=== PATIENT | female | born 1985 | race Caucasian/White ===

== ENCOUNTER 2024-07-14 10:27 | Outpatient (CLI) | payer BC, SELFPAY ==
--- OUTSIDE RECORDS SUMMARY | 2024-07-14 10:43 | XMS_ITS | Referral Summary ---
Author Organization [facility] Address [address] [place] [address]. [place] [address] Care Team Providers Care Molded Rubber Goods Cutter Name Role Phone Isadora De La Cruz MD Primary Care Provider +1- [phone] Encounters Date Type Department Care Team Description 06/29/2024 Travel 06/29/2024 10:05 AM CDT - 06/29/2024 11:59 PM CDT Hospital Encounter [facility] [address], [address] [place] [address] Isadora De La Cruz MD Visit for screening mammogram Discharge Disposition: Home or Self Care 06/24/2024 Travel from Last 3 Months Allergies Active Allergy Reactions Criticality Noted Date Comments Amoxicillin Rash Low 03/24/2017 Medications Medication Sig Dispensed Refills Start Date End Date Status VITAMINS PO Take by mouth. Active Active Problems Problem Noted Date Diagnosed Date Indication for care in labor and delivery, antep artum 05/02/2017 Indication for care in labor or delivery 017 Other procreative management counseling and advi ce 01/28/2013 Social History Tobacco Use Types Packs/Day Years Used Date Smoking Tobacco: Never Smokeless Tobacco: Never Alcohol Use Standard Drinks/Week Comments No 1.7 (1 standard drink = 0.6 oz p ure alcohol) Adolescent Education Answer Date Record ed Getting School Help Needed Not on file 07/04 Sex and Gender Information Value Date Recorded Sex Assigned at Not on file Gender Identity Not on file Sexual Orientation Not on file Last Filed Vital Signs Vital Sign Reading Time Taken Comments Blood Pressure 126/70 05/04/2017 4:00 PM CDT Pulse 59 05/04/2017 4:00 PM CDT Temperature 37.2 ??C (98.9 ??F) 05/04/2017 4:00 PM CD T Respiratory Rate 18 05/04/2017 4:00 PM CDT Oxygen Saturation - - Inhaled Oxygen Concentration - - Weight 73 kg (161 lb) 05/02/2017 11:07 AM CDT Height 162.6 cm (5' 4) 05/02/2017 11:07 AM CDT Body Mass Index 27.64 05/02/2017 11:07 AM CDT Plan of Treatment Not on file Procedures Procedure Name Priority Date/Time Associated Diagnosis Comments MA SCREENING BILATERAL W/ HARMEET Routine 06/29/2024 10:35 AM CDT Visit for screening mammogram GLUCOSE Routine 06/27/2023 9:59 AM CDT Personal history of gestational diabetes LIPID PROFILE Routine 06/27/2023 9:59 AM CDT Encounter for screening for lipoid disorders HIV ANTIGEN ANTIBODY COMBO Routine 09/16/2016 from Last 3 Months or Most Recently Relevant to Health Maintenance Results * MA Screening Bilateral w/ Harmeet (06/29/2024 10:35 AM CDT) Anatomical Region Laterality Modality Breast Bilateral Mammography Impressions 06/30/2024 8:03 AM CDT IMPRESSION: ACR BI-RADS Category 1: Negative BREAST CANCER SCREENING RECOMMENDATION: Routine yearly mammography beginning at age 40 or as discussed with your provider. The results and recommendations of this examination will be communicated to the patient. David Marcial MD Narrative 06/30/2024 8:03 AM CDT BILATERAL FULL FIELD DIGITAL SCREENING MAMMOGRAM WITH TOMOSYNTHESIS Performed on: 06/29/24 Compared to: 07/01/2022 Technique: ??This study was evaluated with the assistance of Computer-Aided Detection. ??Breast Tomosynthesis was used in interpretation. Findings: The breasts are heterogeneously dense, which may obscure small masses. ??There is no radiographic evidence of malignancy. Isadora De La Cruz MD IMG MAMMOGRAPHY OR DERABLES * (ABNORMAL) Lipid Profile (06/27/2023 9:59 AM CDT) Cholesterol 188 <200 mg/dL 06/27/2023 8:03 PM CDT [facility] Triglycerides 100 <150 mg/dL 06/27/2023 8:03 PM CDT [facility] Direct Measure HDL 67 >=50 mg/dL 06/27/2023 8:03 PM CDT [facility] LDL Cholesterol Calculated 101(H) <=100 mg/dL 06/27/2023 8:03 PM CDT [facility] Non HDL Cholesterol 121 <130 mg/dL 06/27/2023 8:03 PM CDT [facility] Blood BLOOD SPECIMEN / Unknown Client Draw / Unknown 06/27/2023 9:59 AM CDT 06/27/2023 3:58 PM CDT Narrative [facility] - 06/27/2023 8:03 PM CDT Cholesterol Desirable: ??<200 mg/dL Triglycerides Normal: ??Less than 150 mg/dL Borderline High: ??150-199 mg/dL High: ??200-499 mg/dL Very High: ??Greater than or equal to 500 mg/dL Direct Measure HDL Female: ??Greater than or equal to 50 mg/dL Male: ??Greater than or equal to 40 mg/dL LDL Cholesterol Desirable: ??<100mg/dL Above Desirable: ??100-129 mg/dL Borderline High: ??130-159 mg/dL High: ??160-189 mg/dL Very High: ??>= 190 mg/dL Non HDL Cholesterol Desirable: ??130 mg/dL Above Desirable: ??130-159 mg/dL Borderline High: ??160-189 mg/dL High: ??190-219 mg/dL Very High: ??Greater than or equal to 220 mg/dL Chio Maloney LEAD TINNER SHAREPOINT CONSULTANT LAB - BLO OD ORDERABLES [facility] Core Lab [address] [facility] [address], [address] [place] [address], [facility] [phone] * (ABNORMAL) Glucose (06/27/2023 9:59 AM CDT) Glucose 103(H) 70 - 99 mg/dL 06/27/2023 8:03 PM CDT [facility] Patient Fasting > 8hrs? Yes 06/27/2023 8:03 PM CDT [facility] Blood BLOOD SPECIMEN / Unknown Client Draw / Unknown 06/27/2023 9:59 AM CDT 06/27/2023 3:58 PM CDT Chio Maloney LEAD TINNER SHAREPOINT CONSULTANT LAB - BLO OD ORDERABLES [facility] Core Lab [address] [facility] [address] [facility], [address] [place] [address], [facility] [phone] * HIV Antigen Antibody Combo (09/16/2016) HIV Antigen Antibody Combo negative Blood specimen (specimen) Patient Reported LAB - BLOOD ORDERABL ES from Last 3 Months or Most Recently Relevant to Health Maintenance Care Teams Molded Rubber Goods Cutter Relationship Specialty Start Date End Date Isadora De La Cruz MD [facility] [address] [place] [address] PCP - General 06/24/24
--- OUTSIDE RECORDS SUMMARY | 2024-07-14 10:43 | XMS_ITS | Encounter Summary ---
Author Organization [facility] Address [address] [place] [address]. [place] [address] Care Team Providers Care Silk Screen Operator Name Role Phone Isadora De La Cruz MD Primary Care Provider +1- [phone] Encounter Details Date Type Department Care Team (Latest Contact Info) Description 06/24/2024 Travel Social History Tobacco Use Types Packs/Day Years [...] on file Sexual Orientation Not on file documented as of this encounter Plan of Treatment Not on file documented as of this encounter Visit Diagnoses Not on filedocumented in this encounter Care Teams Silk Screen Operator Relationship Specialty Start Date End Date Isadora De La Cruz MD [facility] [address] [place] [address] PCP - General 06/24/24 documented as of this encounter
--- OUTSIDE RECORDS SUMMARY | 2024-07-14 10:43 | XMS_ITS | Encounter Summary ---
Author Organization [facility] Address [address] [place] [address]. [place] [address] Care Team Providers Care Associate Professor Of Law Name Role Phone Isadora De La Cruz MD Primary Care Provider +1- [phone] Encounter Details Date Type Department Care Team (Latest Contact Info) Description 06/29/2024 Travel Social History Tobacco Use Types Packs/Day [...] on filedocumented in this encounter Care Teams Associate Professor Of Law Relationship Specialty Start Date End Date Isadora De La Cruz MD [facility] [address] [place] [address] PCP - General 06/24/24 documented as of this encounter
--- OUTSIDE RECORDS SUMMARY | 2024-07-14 10:43 | XMS_ITS | Clinical Summary ---
Author Organization [facility] Address [address] [place] [address]. [place] [address] Care Team Providers Care Jewelry Casting Model Maker Apprentice Name Role Phone Isadora De La Cruz MD Primary Care Provider +1- [phone] Allergies Active Allergy Reactions Criticality Noted Date Comments Amoxicillin Rash Low 03/24/2017 Medications Medication Sig Dispensed Refills Start Date End Date Status VITAMINS PO Take by mouth. Active Active Problems Problem Noted Date Diagnosed Date Indication for care in labor and delivery, antep artum 05/02/2017 Indication for care in labor or delivery 017 Other procreative management counseling and advi ce 01/28/2013 Encounters Date Type Department Care Team Description 06/29/2024 10:05 AM CDT - 06/29/2024 11:59 PM CDT Hospital Encounter [facility] [address], [address] [place] [address] Isadora De La Cruz MD Visit for screening mammogram Discharge Disposition: Home or Self Care 06/29/2024 Travel 06/24/2024 Travel from Last 3 Months Family History Medical History Relation Comments Breast Cancer Maternal Grandmother Colon Cancer Mother at 70YO Ovarian Cancer No family hx of Relation Status Comments Maternal Grandmother Mother Social History Tobacco Use Types Packs/Day Years [...] 05/02/2017 11:07 AM CDT Plan of Treatment Health Maintenance Due Date Last Done Comments ADVANCE CARE PLANNING 1983 ANNUAL REVIEW OF HM ORDERS 1983 HEPATITIS C SCREENING 2001 HEPATITIS B IMMUNIZATION (1 of 3 - 19+ 3-dose series) 2002 YEARLY PREVENTIVE VISIT 06/25/2023 06/25/20, 06/25/2022, 01/09/2021, Additional history exists PHQ-2 (once per calendar year) 2023 PAP 01/10/2024 01/09/2021, 01/09/2021 COVID-19 Vaccine ( season) 2024 07/05/2023, 06/24/2022, 09/07/2021, Additional history exists INFLUENZA VACCINE (#1) 2024 , 07/16/2022, 07/16/2022, Additional history exists GLUCOSE 06/27/2026 06/27/2023, 06/13, 05/03/2017, Additional history exists MAMMO SCREENING 06/29/2026 06/29/2024, 07/01/2022 DTAP/TDAP/TD IMMUNIZATION (2 - Td or Tdap) 03/20/2027 03/20/2017 LIPID 06/27/2028 06/27/2023, 06/25/2022 RSV VACCINE (1 - 1-dose 75+ series) 2058 HIV SCREENING Completed 09/16/2016 HPV IMMUNIZATION Aged Out No longer e ligible based on patient's age to complete this topic MENINGITIS IMMUNIZATION Aged Out No l onger eligible based on patient's age to complete this topic Pneumococcal Vaccine: Pediatrics (0 to 5 Years) and At-Risk Patients (6 to 64 Years) Aged Out No longer eligible based on patient's age to complete this topic RSV MONOCLONAL ANTIBODY Aged Out No l onger eligible based on patient's age to complete this topic Procedures Procedure Name Priority Date/Time Associated Diagnosis [...] or equal to 220 mg/dL Chio Maloney STRINGED INSTRUMENT TUNER ANIMAL DAYCARE PROVIDER LAB - BLO OD ORDERABLES [facility] [place] Core Lab [address] [facility], [address] [place] [address], [facility] [phone] * (ABNORMAL) Glucose (06/27/2023 9:59 AM CDT) Glucose 103(H) 70 - 99 mg/dL 06/27/2023 8:03 PM CDT [facility] Patient Fasting > 8hrs? Yes 06/27/2023 8:03 PM CDT [facility] Blood BLOOD SPECIMEN / Unknown Client Draw / Unknown 06/27/2023 9:59 AM CDT 06/27/2023 3:58 PM CDT Chio Maloney APRN ANIMAL DAYCARE PROVIDER LAB - BLO OD ORDERABLES [facility] [place] [facility] [address] [facility] [place] [address], [facility] [phone] * HIV Antigen Antibody Combo (09/16/2016) HIV Antigen Antibody Combo negative Blood specimen (specimen) Patient Reported LAB - BLOOD ORDERABL ES from Last 3 Months or Most Recently Relevant to Health Maintenance Care Teams Jewelry Casting Model Maker Apprentice Relationship Specialty Start Date End Date Isadora De La Cruz MD [facility] [address] [place] [address] PCP - General 06/24/24
--- OUTSIDE RECORDS SUMMARY | 2024-07-14 10:43 | XMS_ITS | Encounter Summary ---
Author Organization [facility] Address [address] [place] [address] Care Team Providers Care Box Finisher Name Role Phone Isadora De La Cruz MD Primary Care Provider +1- [phone] Reason for Referral * Diagnostic Imaging Mammo (Routine) - Pending Review Specialty Diagnoses / Procedures Referred By Maldonado oglesby Referred To Contact Radiology. Diagnoses Visit for screening mammogram Procedures MA Screening Bilateral w/ Harmeet MA Screen Bilateral w/Harmeet Isadora De La Cruz MD [facility] [address] [place] [address] Referral ID Status Reason Start Date Expiration Date V isits Requested Visits Authorized [id number] Pending Review 06/28/2024 06/28/2025 1 1 Reason for Visit * Diagnostic Imaging Mammo (Routine) - Pending Review Specialty Diagnoses / Procedures Referred By Maldonado oglesby Referred To Contact Radiology / Radiology. Diagnoses mammo Procedures MA SCREENING DIGITAL BILATERAL System, Provider Not In Breast Center [address] [facility], [address] [place] [address] Referral ID Status Reason Start Date Expiration Date V isits Requested Visits Authorized [id number] Pending Review 06/29/2024 06/29/2025 1 1 Encounter Details Date Type Department Care Team (Late st Contact Info) Description 06/29/2024 10:05 AM CDT - 06/29/2024 11:59 PM CDT Hospital Encounter [facility] [address] [facility], [address] [place] [address] Isadora De La Cruz MD [facility] [address] [place] [address] Visit for screening mammogram Discharge Disposition: Home or Self Care Social History Tobacco Use Types Packs/Day Years [...] on file documented as of this encounter Medications at Time of Discharge Medication Sig Dispensed Refills Start Date End Date VITAMINS PO Take by mouth. documented as of this encounter Plan of Treatment Not on file documented as of this encounter Procedures Procedure Name Priority Date/Time Associated Diagnosis Comments MA SCREENING BILATERAL W/ HARMEET Routine 06/29/2024 10:35 AM CDT Visit for screening mammogram documented in this encounter Results * MA Screening Bilateral w/ Harmeet [...] La Cruz MD IMG MAMMOGRAPHY OR DERABLES documented in this encounter Visit Diagnoses Diagnosis Visit for screening mammogram Other screening mammogram documented in this encounter Care Teams Box Finisher Relationship Specialty Start Date End Date Isadora De La Cruz MD [facility] [address] [place] [address] PCP - General 06/24/24 documented as of this encounter
== END 2024-07-14 10:28 | disposition home or self-care (01) ==
PROVIDERS: PCP Physician Assistant Medical; Visit Provider Emergency Medicine
DX: Z00.00 Encounter for general adult medical examination without abnormal findings (principal); Z13.6 Encounter for screening for cardiovascular disorders; Z86.32 Personal history of gestational diabetes
CPT/HCPCS: 80061; 82947

== ENCOUNTER 2024-07-15 09:27 | Outpatient (CLI) | payer BC, SELFPAY ==
--- OUTSIDE RECORDS SUMMARY | 2024-07-22 12:25 | XMS_ITS | Referral Summary ---
Author Organization [facility] Address [address] [place] [address]. [place] [address] Care Team Providers Care Child Day Care Center Worker Name Role Phone Isadora De La Cruz MD Primary Care Provider +1- [phone] Encounters Date Type Department Care Team Description 06/29/2024 Travel 06/29/2024 10:05 AM CDT - 06/29/2024 11:59 PM CDT Hospital Encounter [facility] [address] [facility] [facility], [address] [place] [address] Isadora De La Cruz MD [...] or equal to 220 mg/dL Chio Maloney ASSISTANT DIRECTOR COLLECTION ANALYST LAB - BLO OD ORDERABLES [facility] Core Lab [address] [facility] [address], [address] [place] [address], [facility] [phone] * (ABNORMAL) Glucose (06/27/2023 9:59 AM CDT) Glucose 103(H) 70 - 99 mg/dL 06/27/2023 8:03 PM CDT [facility] Patient Fasting > 8hrs? Yes 06/27/2023 8:03 PM CDT [facility] Blood BLOOD SPECIMEN / Unknown Client Draw / Unknown 06/27/2023 9:59 AM CDT 06/27/2023 3:58 PM CDT Chio Maloney ASSISTANT DIRECTOR COLLECTION ANALYST LAB - BLO OD ORDERABLES [facility] Core Lab [address] [facility] [address] [facility], [address] [place] [address], [facility] [phone] * HIV Antigen Antibody Combo (09/16/2016) HIV Antigen Antibody Combo negative Blood specimen (specimen) Patient Reported LAB - BLOOD ORDERABL ES from Last 3 Months or Most Recently Relevant to Health Maintenance Care Teams Child Day Care Center Worker Relationship Specialty Start Date End Date Isadora De La Cruz MD [facility] [address] [place] [address] PCP - General 06/24/24
--- OUTSIDE RECORDS SUMMARY | 2024-07-22 12:25 | XMS_ITS | Encounter Summary ---
Author Organization [facility] Address [address] [place] [address]. [place] [address] Care Team Providers Care Button Tacker Name Role Phone Isadora De La Cruz MD Primary Care Provider +1- [phone] Encounter Details Date Type Department Care Team [...] on filedocumented in this encounter Care Teams Button Tacker Relationship Specialty Start Date End Date Isadora De La Cruz MD [facility] [address] [place] [address] PCP - General 06/24/24 documented as of this encounter
--- OUTSIDE RECORDS SUMMARY | 2024-07-22 12:25 | XMS_ITS | Clinical Summary ---
Author Organization [facility] Address [address] [place] [address]. [place] [address] Care Team Providers Care Central Supply Technician Supervisor Name Role Phone Isadora De La Cruz MD Primary Care Provider +1- [phone] Allergies Active Allergy Reactions Criticality Noted Date [...] - 06/29/2024 11:59 PM CDT Hospital Encounter [facility] [address] [facility], [address] [place] [address] Isadora De La Cruz MD Visit for [...] or equal to 220 mg/dL Chio Maloney INTERNAL GRINDER TENDER PLATE CUTTER LAB - BLO OD ORDERABLES [facility] Core Lab [address] [facility], [address] [place] [address], [facility] [phone] * (ABNORMAL) Glucose (06/27/2023 9:59 AM CDT) Glucose 103(H) 70 - 99 mg/dL 06/27/2023 8:03 PM CDT [facility] Patient Fasting > 8hrs? Yes 06/27/2023 8:03 PM CDT [facility] Blood BLOOD SPECIMEN / Unknown Client Draw / Unknown 06/27/2023 9:59 AM CDT 06/27/2023 3:58 PM CDT Chio Maloney APRN PLATE CUTTER LAB - BLO OD ORDERABLES [facility] Core Lab [address] [facility], [address] [place] [address], [facility] [phone] * HIV Antigen Antibody Combo (09/16/2016) HIV Antigen Antibody Combo negative Blood specimen (specimen) Patient Reported LAB - BLOOD ORDERABL ES from Last 3 Months or Most Recently Relevant to Health Maintenance Care Teams Central Supply Technician Supervisor Relationship Specialty Start Date End Date [facility]adroa De La [facility] MD [facility] [address] [place] [address] PCP - General 06/24/24
--- OUTSIDE RECORDS SUMMARY | 2024-07-22 12:26 | XMS_ITS | Data Portability ---
Author Organization [employer] [employer], [id number] Address [address] [place] [address] Assessment Encounter Date Assessment Date Assessment LastModified by Organization Details LastModified Time 07/03/2023 07/03/2023 Total time spent in reviewing patient's history and outside records, discussion of patient's concerns, examination, reviewing and discussing imaging, ordering additional tests, counseling with shared decision making, sending prescriptions and documentation was 21 minutes. [email or web address] Not available 07/03/2023 14:22:14 Plan of Treatment Reminders Order Date Submit Date Provider Last Modified By Organization Details Last Modified Time Details Appointments None recorded. Lab hemoglobin (Hb), fingerstick , blood 2020 021 [email or web address] [id number] , [address] [place] [address], [address], [place], [address], 09:40:22 pap, LB 2020 021 [facility], [address] [place], [address], 10:32:14 HPV DNA, high-risk 2020 021 [facility], [address] [place], [address], 10:32:14 thyroid cascade, serum 2020 021 [facility], [address] [place], [address], 1 10:32:13 lipid panel, blood 2020 021 [facility], [address] [place], [address], 1 10:32:12 hemoglobin A1c + average glucose, QN, blood 2020 021 [facility], [address], [place], [address], 1 10:32:13 unlisted lab - glucose, fasting 2020 021 [facility], [address], [place], [address], 1 10:32:12 lipid panel, serum 2021 022 [email or web address] [id number] [facility], [address] [place] [address], [address], [place], [address], 3 03:42:26 glucose, QN [mass/volum e], blood 2021 022 [facility], [address] [place] [address], [address], [place], [address], 3 03:42:27 HbA1c (hemoglobin A1c), blood 2021 022 [email or web address] [facility], [address] [place] [address], [place], [address], 2 17:09:43 lipid panel, serum 2022 023 [facility], [address] [place] [address], [address], [place], [address], 3 21:05:48 thyrotropin , QN, serum or plasma 2022 023 [facility], [address], [address], [place], [address], 3 21:18:18 T4, free, serum 2022 023 [facility], [address], [address], [place], [address], 3 21:18:17 hemoglobin A1c, QN, blood 2022 023 [facility], [address], [address], [place], [address], 3 21:18:20 glucose, QN [mass/volum e], blood 2022 023 [facility], [address], [address], [place], [address], 3 21:05:49 FSH (follicle-s timulating hormone), serum 2022 023 [facility], [address], [address], [place], [address], 3 20:41:59 lh (luteinizin g hormone), serum 2022 023 [facility], [address], [address], [place], [address], 3 20:41:59 estradiol, serum 2022 023 [facility], [address], [address], [place], [address], 3 20:41:59 Referral breast center referral - diagnostic bilateral mammogram pt symptoms (L) breast pain and (L) breast ultrasound (ok per radiologist for any additional imaging that is needed) 2021 022 [email or web address] [facility], [address] [facility], [place], [address], 14:55:12 Procedures None recorded. Surgeries None recorded. Imaging US, pelvis, transabdomi nal + transvagina l 2022 023 [email or web address] [id number], [address], [address], [place], [address], 3 13:23:14 Medication Orders imiquimod 5 % topical cream packet 2020 [facility]21 [id number], [address], [place], [address], 10:32:30 Patient TargetsNo targets recorded. Patient Instructions Encounter Date Encounter Id Patient Instructions Last Modified By Organization Details Last Modified Time 01/09/2021 [id number] - Encouraged jaylen ast self-awareness. Start screening mammograms at age 40. - Calcium and vitamin D intake discussed. - Patient will return to clinic for fasting labs. - Counseling on use of estrogen containing contraceptives provided, including the 10/999 risk of DVT or stroke. This risk may be higher in smokers. - STD screening discussed. - Discussed appropriate breast cancer screening and mammogram intervals. - Mood symptoms discussed-resources offered and phone numbers given to patient for counseling services/psychother apy, precautions regarding depressed mood also discussed and patient is aware of emergency resources. - Counseling on alternative methods of control provided including back up control and condoms. - Counseled on smoking cessation. - Encouraged weight loss-action plan discussed. - Counseling on prevention of sexually transmitted diseases provided. - Non-gynecologic health concerns managed by primary care provider. - Encouraged patient to establish care with a PCP to manage non-SUPPORT CLERK concerns. - Discussed problems discovered during review of symptoms-direct patient to follow up with PCP. - Vulvovaginal hygiene discussed. - Trusted website recommendations given to patient. - Handouts given to patient. Reviewed use of Aldara. Declines TCA today. [email or web address] Not available 01/09/2021 14:15:06 06/25/2022 [id number] - referral to breast center for persistant left breast pain not related to menstrual cycle - Calcium and vitamin D intake discussed. - Patient will return to clinic for fasting labs. - Counseling on use of estrogen containing contraceptives provided, including the 10/999 risk of DVT or stroke. This risk may be higher in smokers. - Encouraged patient to establish care with a PCP to manage non-SUPPORT CLERK concerns. [email or web address] Not available 06/25/2022 14:40:13 06/27/2023 [id number] - Encouraged jaylen ast self-awareness and recommend yearly mammogram. - Encouraged regular exercise. - Calcium and vitamin D intake discussed. - Discussed appropriate breast cancer screening and mammogram intervals. - Counseled on perimenopause signs/symptoms. - Counseling on use of estrogen containing contraceptives provided, including the 10/999 risk of DVT or stroke. This risk may be higher in smokers. [email or web address] Not available 06/27/2023 11:05:03 Reason for Referral Breast Center Referral for P ain of left breast diagnostic bilateral mammogram pt symptoms (L) breast pain and (L) breast ultrasound (ok per radiologist for any additional imaging that is needed) Referring Physician: Chio Maloney, RIG BUILDER HELPER, Encounter Date: 06/25/2022 Results Created Date Observation Date Name Description Value Unit Range Abnormal Flag Note LastModifiedBy Organization Detail LastModifiedTime 01/09/2021 hemog lobin (Hb), finge rstic k, blood fingerstick hemoglobin 14.3 g/dL 12.0-1 5.0 Not Available [id number], [place], [address], 01/09/2021 09:27:05 01/10/20 21 01/09/2021 lipid panel , blood specimen type Not Available [facility] [address] [place], [address], 01/18/2021 10:32:12 01/10/20 21 01/09/2021 lipid panel , blood cholesterol 170 mg/dL <200 Not Available [facility] [address] [place], [address], 01/18/2021 10:32:12 01/10/20 21 01/09/2021 lipid panel , blood triglyceride s profile 138 mg/dL <150 Not Available [place] [address] [place], [address], 01/18/2021 10:32:12 01/10/20 21 01/09/2021 lipid panel , blood LDL chol, calc 68 mg/dL <100 Not Available [facility] [address] [place], [address], 01/18/2021 10:32:12 01/10/20 21 01/09/2021 lipid panel , blood HDL cholesterol 74 mg/dL >40 Not Available [facility] [address] [place], [address], 01/18/2021 10:32:12 01/10/20 21 01/09/2021 lipid panel , blood chol/HDL ratio 2.3 0.0-4. [address] [facility] [address], [address], 01/18/2021 10:32:12 01/10/20 21 01/09/2021 gluco se, fasti ng glucose, fasting 103 mg/dL 50-[address] [facility] [address] [place], [address], 01/18/2021 10:32:12 01/10/20 21 01/09/2021 thyro id casca de, serum TSH 1.570 uIU/m L 0.358- 3.740 Not Available [facility] [address] [place], [address], 01/18/2021 10:32:13 01/10/20 21 01/09/2021 hemog lobin A1c + avera ge gluco se, QN, blood HbA1C (glycosolate d HGB) 5.3 % <5.7 Not Available [facility] [address] [place], [address], 01/18/2021 10:32:13 01/10/20 21 01/09/2021 hemog lobin A1c + avera ge gluco se, QN, blood EAG (est. average glucose) 105 mg/dL <117 Not Available [facility] [address], [place], [address], 01/18/2021 10:32:13 01/10/20 21 01/09/2021 HPV DNA, high- risk HPV high risk type 16 Negati ve for HPV type 16. negati ve for HPV type 16. Not Available [facility] [address], [address], 01/18/2021 10:32:14 01/10/20 21 01/09/2021 HPV DNA, high- risk HPV high risk type 18 Negati ve for HPV type 18. negati ve for HPV type 18. Not Available [facility] [address], [address], 01/18/2021 10:32:14 01/10/20 21 01/09/2021 HPV DNA, high- risk HPV other high risk types Negati ve for other high risk HPV types. negati ve for other high risk HPV types. HPV other high risk types inclu de 31, 33, 35, 39, 45, 51, 52, 56, 58, 59, 66, and 68. Not Available [facility] [address], [address], 01/18/2021 10:32:14 01/10/20 21 01/09/2021 pap, LB case report See note CASE REPOR T ----- ----- ----- ----- ----- ----- ----- ----- Pap Smear Case: [id number] Autho yamila karen Provi toni: Laverne Diaz NP Colle cted: 01/09 09:37 AM Order ing Locat ion: Vinod leal Recei haleigh: 01/09 05:38 PM [facility] First Scree n: Angelina Cunningham Speci men: Cervi oni Thin Prep with HPV Test Image r Batool pateg, Cervi x ===== ===== ===== ==== = INTER PRETA TION: = ===== ===== ===== ==== Negat anaya for intra epith elial lesio n or antonia salcedo cells . Elect silvestre beltrán by Angelina Cunningham on at 9:31 AM SPECI MEN ADEQU ACY ----- ----- ----- ----- ----- ----- ----- ----- Satis facto ry for evalu ation . Endoc stanley bishop/bandar ansfo rmkirill on zone compo nent prese nt. CLINI ONI INFOR MATIO N ----- ----- ----- ----- ----- ----- ----- ----- Regul ar LMP ----- ----- ----- ----- ----- ----- ----- ----- PAP DISCL AIMER ----- ----- ----- ----- ----- ----- ----- ----- This speci men was scree ramiro by the ThinP rep Radha de souza Systanisa m prior to lai morris w by a cytot echno logis t and/o r patho logis t. The Pap test is a scree cam test and has an irred ucibl e false -nega tive rate. Routi ne perio dic testi ng and follo w-up of unexp yessy d clini oni signs and sympt oms are impor tant to minim ize the conse quenc e of false -nega tive Pap tests . Pallavi beltrán et al. 2012 Updat ed Conse nsus Guide lines for the Manag ement of Abnor mal Cervi oni Cance r Scree cam Tests and Cance r Precu rsors . J Low Genit Tract Dis 2013; 17 (5): S2-S2 7 Not Available [facility] [address], [place], [address], 01/18/2021 10:32:14 06/25/20 22 06/25/2022 LIPID PANEL cholesterol 177 mg/dL <200 Not Available [address], [place], [address], 06/25/2022 18:48:17 06/25/20 22 06/25/2022 LIPID PANEL triglyceride s 131 mg/dL <150 Not Available [address], [place], [address], 06/25/2022 18:48:17 06/25/20 22 06/25/2022 LIPID PANEL direct measure HDL 63 mg/dL >=50 Not Available [address], [place], [address], 06/25/2022 18:48:17 06/25/20 22 06/25/2022 LIPID PANEL LDL cholesterol calculated 88 mg/dL <=100 Not Available [address], [place], [address], 06/25/2022 18:48:17 06/25/20 22 06/25/2022 LIPID PANEL non HDL cholesterol 114 mg/dL <130 Jessica stero l Joey able: <200 mg/dL Trigl yceri joe Jolene l: Less than 150 mg/dL Borde rline High: 150-1 99 mg/dL High: 200-4 99 mg/dL Very High: Great er than or equal to 500 mg/dL Direc t Measu re HDL Femal e: Great er than or equal to 50 mg/dL Male: Great er than or equal to 40 mg/dL LDL Jessica stero l Joey able: <100m g/dL Above Joey able: 100-1 29 mg/dL Borde rline High: 130-1 59 mg/dL High: 160-1 89 mg/dL Very High: >= 190 mg/dL Non HDL Jessica stero l Joey able: 130 mg/dL Above Joey able: 130-1 59 mg/dL Borde rline High: 160-1 89 mg/dL High: 190-2 19 mg/dL Very High: Great er than or equal to 220 mg/dL Not Available [address], [place], [address], 06/25/2022 18:48:17 06/25/2006/25/2022 GLUCO SE SERUM OR PLASM A patient fasting > 8hrs? Yes Not Available [facility] [address], [place], [address], 06/25/2022 18:48:17 06/25/20 22 06/25/2022 GLUCO SE SERUM OR PLASM A glucose 101 mg/dL 70-99 high Not Available [address], [place], [address], 06/25/2022 18:48:17 06/25/2006/25/2022 HEMOG LOBIN A1C hemoglobin A1C 5.5 % <5.7 Jolene l <5.7% Predi abete s 5.7-6 .4% Diabe lynette 6.5% or highe r Note: Adopt ed from ADA conse nsus guide lines . Not Available [address], [place], [address], 06/25/2022 18:48:20 06/27/202023 LIPID PANEL cholesterol 188 mg/dL <200 Not Available [facility] [address], [place], [address], 06/27/2023 21:05:48 06/27/20 23 06/27/2023 LIPID PANEL triglyceride s 100 mg/dL <150 Not Available [facility] [address], [place], [address], 06/27/2023 21:05:48 06/27/2006/27/2023 LIPID PANEL direct measure HDL 67 mg/dL >=50 Not Available [facility] [address], [place], [address], 06/27/2023 21:05:48 06/27/20 23 06/27/2023 LIPID PANEL LDL cholesterol calculated 101 mg/dL <=100 high Not Available [facility] [address], [place], [address], 06/27/2023 21:05:48 06/27/20 23 06/27/2023 LIPID PANEL non HDL cholesterol 121 mg/dL <130 Jessica stero l Joey able: <200 mg/dL Trigl yceri joe Jolene l: Less than 150 mg/dL Borde rline High: 150-1 99 mg/dL High: 200-4 99 mg/dL Very High: Great er than or equal to 500 mg/dL Direc t Measu re HDL Femal e: Great er than or equal to 50 mg/dL Male: Great er than or equal to 40 mg/dL LDL Jessica stero l Joey able: <100m g/dL Above Joey able: 100-1 29 mg/dL Borde rline High: 130-1 59 mg/dL High: 160-1 89 mg/dL Very High: >= 190 mg/dL Non HDL Jessica stero l Joey able: 130 mg/dL Above Joey able: 130-1 59 mg/dL Borde rline High: 160-1 89 mg/dL High: 190-2 19 mg/dL Very High: Great er than or equal to 220 mg/dL Not Available [address], [place], [address], 06/27/2023 21:05:48 06/27/2006/27/2023 GLUCO SE SERUM OR PLASM A glucose 103 mg/dL 70-99 high Not Available [address], [place], [address], 06/27/2023 21:05:48 06/27/2006/27/2023 GLUCO SE SERUM OR PLASM A patient fasting > 8hrs? Yes Not Available [address], [place], [address], 06/27/2023 21:05:48 06/27/2006/27/2023 T4 FREE thyroxine free 1.63 NG/dL 0.90-1 .70 Not Available [address], [place], [address], 06/27/2023 21:18:17 06/27/2006/27/2023 THYRO TROPI N (TSH) TSH 1.58 uIU/m L 0.30-4 .20 Not Available [address], [place], [address], 06/27/2023 21:18:17 06/27/2006/27/2023 HEMOG LOBIN A1C hemoglobin A1C 5.5 % <5.7 Jolene l <5.7% Predi abete s 5.7-6 .4% Diabe lynette 6.5% or highe r Note: Adopt ed from ADA conse nsus guide lines . Not Available [address], [place], [address], 06/27/2023 21:18:20 07/03/20 23 07/03/2023 FOLLI GEOVANNI STIMU LATIN G HORMO NE FSH 4.7 mIU/m L 19 years and older : Folli cular phase : 3.5-1 2.5 mIU/m L Ovula tion phase : 4.7-2 1.5 mIU/m L Lutea l phase : 1.7-7 .7 mIU/m L Postm enopa use: 25.8- 134.8 mIU/m L Not Available [address], [place], [address], 07/03/2023 20:41:59 07/03/20 23 07/03/2023 LUTEI NIZIN G HORMO NE luteinizing hormone 5.3 mIU/m L FEMAL E: Age 0 - 6 mo: <0.1- 8.2 mIU/m L 6 mo - 11 years : <0.1- 1.3 mIU/m L 11 - 14 years : <0.1- 10 mIU/m L 14 - 19 years : 0.4-2 5 mIU/m L 19 years and older : Folli cular Phase : 2.4-1 2.6 mIU/m L Ovula tion Phase : 14.0- 95.6 mIU/m L Lutea l Phase : 1.0-1 1.4 mIU/m L Postm enopa usal: 7.7-5 8.5 mIU/m L Not Available [address], [place], [address], 07/03/2023 20:41:59 07/03/20 23 07/03/2023 ESTRA DIOL estradiol 56 pg/mL Healt hy Men: 11.3- 43.2 pg/mL Healt hy Postm enopa usal Women : Postm enopa use: <5-13 8 pg/mL Healt hy Pregn ant Women : 1st trime ster: 154-3 243 pg/mL 2nd trime ster: 1561- 47305 pg/mL 3rd trime ster: 8525- >3000 0 pg/mL Healt hy Women Cycle Phase : Folli cular : 30.9- 90.4 pg/mL Ovula tion: 60.4- 533 pg/mL Lutea l: 60.4- 232 pg/mL Healt hy Women Cycle Sub-P hase: Early Folli cular : 20.5- 62.8 pg/mL Inter media te Folli cular : 26-79 .8 pg/mL Late Folli cular : 49.5- 233 pg/mL Ovula tion: 60.4- 602 pg/mL Early Lutea l: 51.1- 179 pg/mL Inter media te Lutea l: 66.5- 305 pg/mL Late Lutea l: 30.2- 222 pg/mL Not Available [address], [place], [address], 07/03/2023 20:41:59 07/01/20 22 07/01/2022 US, [place] tstephanie No observ ation record ed. [email or web address] [facility], [place], [address], 07/02/2022 11:32:56 07/01/20 22 07/01/2022 MAMMO , diagn ostic , tomos ynthe sis, bilat eral, w/ CAD No observ ation record ed. [email or web address] [facility], [place], [address], 07/02/2022 11:33:24 06/27/20 23 06/27/2023 lay lette r No observ ation record ed. [place] [id number] [address], [place], [address], 06/30/2023 17:07:27 06/27/20 23 06/27/2023 MAMMO , scree cam, tomos ynthe sis, bilat eral No observ ation record ed. [email or web address], [place], [address], 07/03/2023 09:40:49 07/03/20 23 07/03/2023 US, pelvi s, trans abdom inal + trans vagin al No observ ation record ed. [email or web address] [address], [place], [address], 07/05/2023 15:58:53 Result Notes Documentation Provider Name and Address Organization Details Recorded Time Mammo, Screening, Tomosynthesis, Bilateral : Mammogram Screening Mammogram Type: 3D Bilateral Radiological Classification: Bi-Rads 2 - Benign Findings ACR Category: c-Heterogeneously dense, may obscure small masses Followup planned: Screening mammogram one year Yue Leung(TERM) null, [facility] R[employer] BUILDER HELPER 07/03/2023 09:40:49 Problems No Known Problems Procedures Surgical History Date Name Laterality Status Provider Name and Address Organization Details Recorded Time 3 Date of Last Mammogram completed El Marshall [facility] RIG BUILDER HELPER 06/30/2023 08:55:33 1 Date of Last Pap Smear completed Bonilla Ornelas [facility] RIG BUILDER HELPER 01/18/2021 12:08:09 colposcopy of cervix completed Not Available [facility] 05/22/2020 01:04:49 tooth extraction completed Not Available [facility] 05/22/2020 01:04:49 Imaging Results Imaging Date Name Status LastModified by Organization Details LastModified Time 07/01/2022 [facility], breast, [email or web address] [address] [place], [address], 07/02/2022 11:32:56 07/01/2022 MAMMO, diagnostic, tomosynthesis, bilateral, w/ CAD [facility] [address], [address], 07/02/2022 11:33:24 06/27/2023 lay [id number], [place], [address], 06/30/2023 17:07:27 06/27/2023 MAMMO, screening, tomosynthesis, bilateral completed [id number], [place], [address], 07/03/2023 09:40:49 07/03/2023 US, pelvis, transabdominal + transvaginal completed [email or web address] Leah [address], [place], [address], 07/05/2023 15:58:53 Procedure Notes None recorded. Medical Equipment None Reported. Allergies Allergen ID Allergen Name Allergen Category Reaction Reaction Severity Criticality Documentation Date Start Date Code Code System Note Provider Name and Address Organization Details Recorded Time 247375 amoxicill in trihydrat e medicatio n Not available Not available Not available 05/19/2020 29832 8 RxNorm *Note : 05/21 - Not Available [facility] 0 16:58:52 Medications Name Sig Start Date Stop Date Status Note LastModified by Organization Details LastModified Time imiquimod 5 % topical cream packet APPLY TOPICALLY THE AFFECTED AREA(S) 5 TIMES PER WEEK. 06/25 completed Not Available Not Available Not Available COVID-19 At-Home Test kit FOLLOW INSTRUCTIO NS IN PACKAGING 06/27 completed Not Available Not Available Not Available Vitals Date Recorded Body weight Body mass index (BMI) Body height Systolic blood pressure Diastolic blood pressure Provider Name and Address Organization Details Last Updated DateTime 06/25/2022 37309.34 g 23.9 kg/m2 162.56 cm 112 mm[Hg] 68 mm[Hg] Kati Lackey (TERMED) [place] [facility] 2 10:34:02 Date Recorded Body weight Body mass index (BMI) Body height Systolic blood pressure Diastolic blood pressure Provider Name and Address Organization Details Last Updated DateTime 06/27/2023 81354.55 g 24.4 kg/m2 162.56 cm 110 mm[Hg] 80 mm[Hg] Joleen Pond [place] [facility] [employer] 3 10:24:26 Date Recorded Body height Systolic blood pressure Diastolic blood pressure Provider Name and Address Organization Details Last Updated DateTime 07/03/2023 162.56 cm 122 mm[Hg] 80 mm[Hg] Leila Hollingsworth [place] - [employer] 07/03/2023 13:59:40 Date Recorded Body height Body mass index (BMI) Body weight Systolic blood pressure Diastolic blood pressure Provider Name and Address Organization Details Last Updated DateTime 01/09/2021 162.56 cm 22.3 kg/m2 72531.01 g 118 mm[Hg] 80 mm[Hg] Shannon Correa (TERMED) [place] [employer] BU[employer]DER HELPER 09:23:43 Social History Question Answer Notes LastModified by Meet My Friends Details LastModified Time Tobacco Smoking Status Never Smoker Leila childSHAREE RIG BUILDER HELPER 07/03/2023 08:23:29 What Is Your Level Of Alcohol Consumption? None Information not available 07/03/2023 What Is Your Level Of Caffeine Consumption? 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 Information not available 07/03/2023 Are You Sexually Active? Yes Information not available 07/03/2023 Do You Use Any Illicit Or Recreational Drugs? No Information not available 07/03/2023 Sex: Unknown Functional Status Question Answer Note LastModified by Meet My Friends Details LastModified Time What is your exercise level? Moderate Moderate Amount of Exercise (1-3 times weekly) Information not available 05/22/2020 Mental Status None recorded. Family History Relationship Description Onset Age of this Age Resolved Age Notes LastModified by Organization Details LastModified Time Maternal Grandfather Disorder of thyroid gland Thyroi d Diseas e Not available 05/22/2020 01:06:39 Mother Disorder of thyroid gland Thyroi d Diseas e Not available 05/22/2020 01:06:39 Mother Benign essential hypertension Hypert ension [email or web address] Not available 07/03/2023 12:02:01 Mother Arthropathy Arthri tis Not available 07/03/2023 12:02:01 Maternal Grandfather Benign essential hypertension Hypert ension [email or web address] Not available 07/03/2023 12:02:01 Maternal Grandfather Primary malignant neoplasm of urinary system Kidney /Urina ry Tract Cancer : Kidney [email or web address] Not available 07/03/2023 12:02:01 Maternal Grandfather Arthropathy Arthri tis [email or web address] Not available 07/03/2023 12:02:01 Brother Family history of diabetes mellitus Diabet es Not available 07/03/2023 12:02:01 Father Alcoholic family member Leona [place] in family [email or web address] Not available 07/03/2023 12:02:01 Maternal Grandmother Benign essential hypertension Hypert ension [email or web address] Not available 07/03/2023 12:02:01 Maternal Grandmother Arthropathy Arthri tis [email or web address] Not available 07/03/2023 12:02:01 Medical History Condition Response Endocrinology- History of Gestational Di abetes N Cardiology- Heart Murmur/Mitral Valve Pr olapse N Gynecological History Statement/Question Response History of Abnormal PAP HPV Test Negative Age at Menarche: 10 Date of Last Mammogram 06/27/2023 Date of LMP 06/16/2023 History of Sexually Transmitted Infectio n Y Current Control Method Vasectomy Date of Last Pap Smear 01/09/2021 Obstetrics History GPAL:G 2 P 2 0 0 2 Type Value Multiple Births 0 Full Term 2 Induced 0 Spontaneous 0 Premature 0 Living 2 Ectopics 0 Total 2 Immunizations Vaccine Type Date Status Provider Name and Address Organization Details Recorded Time Tdap 03/20/2017 eloy child [place] - [place] [employer] 06/27/2023 10:21:29 Influenza, split virus, quadrivalent, preservative 07/11/2017 eloy child [place] [employer] 06/27/2023 10:21:29 Influenza, split virus, quadrivalent, preservative 07/25/2016 eloy child [place] [employer] 06/27/2023 10:21:29 COVID-19, mRNA, LNP-S, PF, 30 mcg/0.3 mL dose 01/19/2021 completed Joleen Strouddner null, [place] - [place] [employer] 06/27/2023 10:21:29 COVID-19, mRNA, LNP-S, PF, 30 mcg/0.3 mL dose 02/09/2021 completed Joleen Strouddner null, [place] - [place] [employer] 06/27/2023 10:21:29 COVID-19, mRNA, LNP-S, PF, 30 mcg/0.3 mL dose 09/07/2021 completed Joleen Boyder null, [facility] [employer] 06/27/2023 10:21:29 COVID-19, mRNA, LNP-S, bivalent, PF, 30 mcg/0.3 mL dose 06/24/2022 completed Joleen Boyder null, [facility] [employer] 06/27/2023 10:21:29 Influenza, split virus, trivalent, preservative 06/24/2012 completed Joleen Strouddner null, [place] - [place] [employer] 06/27/2023 10:21:29 Influenza, split virus, trivalent, PF 06/07/2009 completed Joleen Pond null, [place] [employer] 06/27/2023 10:21:29 Influenza, split virus, quadrivalent, PF 07/27/2020 completed Joleen Pond null, [facility] [employer] 06/27/2023 10:21:29 Influenza, MDCK, quadrivalent, PF 07/16/2022 completed Leila Hollingsworth null, [facility] [employer] 07/03/2023 08:22:35 Past Encounters Encounter ID Performer Location Encounter Start Date Encounter Closed Date Diagnosis/Indication Diagnosis SNOMED-CT Code Diagnosis ICD10 Code [id number] GLENIS CLEARY-GABINO [id number] [facility] [address] [facility] ,[address] [place] [address] 01/09/2021 09:15:36 01/09/2021 10:14:55 Gynecologic examination 25878237 Z01.419 Past pregn emmy history of gestational diabetes mellitus 111992176 Z86.32 Cholesterol screening 27 1098357 Z13.220 Thyroid di sorder screening 931000702 Z13.29 Genital warts 561912370 A63.0 Surveillan ce of contraception 801486543 Z30.40 [id number] CHIO MALONEY [address] ,[address] [facility] [place] [address] 06/25/2022 10:24:32 06/25/2022 14:55:12 Hyperlipidemia screening 994471998 Z13.220 Diabetes m ellitus screening 033817119 Z13.1 Pain of left breast 1010 863331 N64.4 [id number] CHIO MALONEY [address] ,[address] [facility] [place] [address] 06/27/2023 10:16:20 06/27/2023 11:10:25 Past history of gestational diabetes mellitus 398474329 Z86.32 Hyperlipid emia screening 773828178 Z13.220 Irregular periods 361986 07 N92.6 Gynecologi c examination 27903249 Z01.537 [id number] GENNY GREEN MD [id number] ,[address] [facility] [place] [address] 07/03/2023 12:01:56 07/03/2023 13:23:14 Irregular periods 61333636 N92.6 [id number] INOCENCIO PERDOMO MD [address] ,[address] [facility] [place] [address] 07/03/2023 13:55:36 07/03/2023 14:27:01 Irregular intermenstrual bleeding 71394949 N92.1 Health Concerns Section Related Observation LastModified by Organization Detai ls LastModified Time None Recorded Concern Status LastModified by Organization Details LastModified Time None Recorded Advance Directives Directive None Recorded Payers Encounter Date Sequence Insurance Name Policy Number Policy Finnegan Covered Member ID Finnegan Member ID Guarantor Name 01/09/2021 1 [place] [id number] 5 Jasiel Averysch [id number] [place] Maria N [place] 06/25/2022 1 [place] [id number] 5 Jasiel Averysch [id number] Ana Maria N [place] 06/27/2023 1 [place] [id number] 5 Jasiel Averysch [id number] Ana Maria N [place] 07/03/2023 1 [place] [id number] 5 Jasiel Domínguezwisch [id number] Ana Maria N [place] 07/03/2023 1 [place] [id number] 5 Jasiel Domínguezwisch [id number] Ana Maria N [place] Notes Date Note Type Note Provider Name and Address Organization Details Recorded Time 01/09/2021 text/html HPI Notes: CECY Wells GYNECOLOGIC EXAM This patient presents today for an annual gynecologic exam. Her periods are regularShe reports no dysmenorrhea. She reports no changes to breasts. The patient denies vaginal itching and burning.The patient's past medical and surgical history were reviewed again today. The medication and allergy list was made current. SEXUAL HISTORY She is sexually active. The patient reports that her partner had a vasectomy to prevent . The patient states that she is satisfied with her current method of control.She denies new partners since last visit. She reports feeling safe in her relationships. The patient declines STD testing today. HEALTHCARE MAINTENANCE The patient's last pap smear was 4 years ago. I reviewed with the patient today ASCCP guidelines for recommended frequency of pap smear testing. The patient expressed understanding. Her CAGE screen was negative. The patient's depression screening PHQ-2 Score is 0 and the FEROZ-7 is 4. . The patient has the following additional complaints. Hx of genital warts 5 yrs ago, used Aldara and it went away. Thinks she has another one. D/c OCPs since got vasectomy and had f/u S/A. GLENIS CLEARY-BC [id number] [facility],[address], [place], [address], [facility] [employer] BU[employer] 01/09/2021 14:16:28 06/25/2022 text/html HPI Notes: ANNUA L GYNECOLOGIC EXAM This patient presents today for an annual gynecologic exam. Her periods are regularShe reports no dysmenorrhea. She reports no changes to breasts. The patient denies vaginal itching and burning.The patient's past medical and surgical history were reviewed again today. The medication and allergy list was made current. SEXUAL HISTORY She is sexually active. The patient reports that her partner had a vasectomy to prevent . The patient states that she is satisfied with her current method of control.She denies new partners since last visit. She reports feeling safe in her relationships. The patient declines STD testing today. HEALTHCARE MAINTENANCE The patient's last pap smear was 1 year ago. I reviewed with the patient today ASCCP guidelines for recommended frequency of pap smear testing. The patient expressed understanding. Her CAGE screen was negative. The patient's depression screening PHQ-2 Score is 1 and the FEROZ-7 is 0 The patient has the following additional complaints. C/o left breast pain for a few months, no palpable lump, does not seem to follow pattern with menstrual cycle. Kids are doing well, 3rd grade and pre-K. CHIO MALONEY, [facility] [address] [facility],[address], [place], [address], [facility] R[employer] BU[employer]PER 06/25/2022 14:42:39 06/27/2023 text/html HPI Notes: ANNUA L GYNECOLOGIC EXAM This patient presents today for an annual gynecologic exam. Her periods are irregular- q 20-25 days, last 7-10 days. She reports a mild degree of dysmenorrhea. She reports no changes to breasts. The patient denies vaginal itching and burning.The patient's past medical and surgical history were reviewed again today. The medication and allergy list was made current. SEXUAL HISTORY She is sexually active. The patient reports that her partner had a vasectomy to prevent . The patient states that she is satisfied with her current method of control.She denies new partners since last visit. She reports feeling safe in her relationships. The patient declines STD testing today. HEALTHCARE MAINTENANCE The patient's last pap smear was 2 years ago. I reviewed with the patient today ASCCP guidelines for recommended frequency of pap smear testing. The patient expressed understanding. Her CAGE screen was negative. The patient's depression screening PHQ-2 Score is 1 and the FEROZ-7 is 0 The patient has the following additional complaints. Due for mammo. Menses changed around July last year. 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 CHIO MALONEY, ZEV- [address] [facility],[address], [place], [address], [place] - [employer] 06/27/2023 11:05:45 07/03/2023 text/html HPI Notes: 38 yo presenting for follow up US due to irregular periods. Describes that starting in January - had 16 days of bleeding - including cycle and spotting. This has continued with 3-4 days of spotting leading into her cycle. Typical cycle is 4 days - intermittent cramping. Most recently only had 10 days between end of cycle and spotting started. Has been off OCPs for about 5 years, partner has vasectomy. Had recent thyroid screening that was normal, recent pelvic exam by LN at annual 06/27 WNL. US today: Uterus 7.6 x 4.7 x 3.8 cm, endometrium 7.2 mm homogeneous, right ovary with 3.2 cm hemorrhagic cyst, left ovary with possible paraovarian cyst 1.3 x 1.1 x 0.[place] [address] [facility],[address], [place], [address], [place] [employer] 07/03/2023 14:22:58 OBGyn Episode Ob Episode Information Episode Created Date Number of Fetuses Patient Bloodtype Patient rh Status Prepregnancy Weight lbs Domestic Partner Domestic Partner Phone Father Name Meat Service Team Member Status 01/10/20 21 1 CLOSED Fetus Data First Name Last Name Admitted to NICU Weight (g) Sex Living Outcome Pediatric Complications Fetus ID Race Codes Race Delivery Type 3033.16 9704 M Full Term [id number] Hi Calculation Initial Hi Date Initial Exam Date Initial Exam Provider Initial Ultrasound Date Last Menstrual Period Date Ultra Sound Weeks Gestation 0 Eighteen To Twenty Week Hi Update Ultra Sound Date Fundal Height At Umbil Quickening Date Ultra Sound Latest Weeks Gestation Final Hi Confirmed By Final Hi Confirmed Date Final Hi Date Ultra Sound Latest Days Gestation 0 0 Menstrual History Last Menstrual Date Menses Monthly On Bcp Conception Prior Menses Frequency Hcg Plus Date Menarche Onset Age Delivery Information Delivery Date Delivery Type Labor Anesthesia Weeks Gestation Incision Type Labor Labor Length Hrs Delivered By Post Complications Tubal Sterilization Discharge Date Comments 4 [facility] idural 38 Discharge Information Feeding Method Contraceptive Method Maternal HG B and HCT Levels Ob Episode Information Episode Created Date Number of Fetuses Patient Bloodtype Patient rh Status Prepregnancy Weight lbs Domestic Partner Domestic Partner Phone Father Name Meat Service Team Member Status 01/10/20 21 1 CLOSED Fetus Data First Name Last Name Admitted to NICU Weight (g) Sex Living Outcome Pediatric Complications Fetus ID Race Codes Race Delivery Type 3146.56 7704 M Full Term [id number] Hi Calculation Initial Hi Date Initial Exam Date Initial Exam Provider Initial Ultrasound Date Last Menstrual Period Date Ultra Sound Weeks Gestation 0 Eighteen To Twenty Week Hi Update Ultra Sound Date Fundal Height At Umbil Quickening Date Ultra Sound Latest Weeks Gestation Final Hi Confirmed By Final Hi Confirmed Date Final Hi Date Ultra Sound Latest Days Gestation 0 0 Menstrual History Last Menstrual Date Menses Monthly On Bcp Conception Prior Menses Frequency Hcg Plus Date Menarche Onset Age Delivery Information Delivery Date Delivery Type Labor Anesthesia Weeks Gestation Incision Type Labor Labor Length Hrs Delivered By Post Complications Tubal Sterilization Discharge Date Comments 7 [facility] idural 38 Discharge Information Feeding Method Contraceptive Method Maternal HG B and HCT Levels
--- OUTSIDE RECORDS SUMMARY | 2024-07-22 12:26 | XMS_ITS | Encounter Summary ---
Author Organization [place] Address [address] [place] [address]. [place] [address] Care Team Providers Care Flight Instructor Name Role Phone Isadora De La Cruz MD Primary Care Provider [phone]- [phone] Encounter Details Date Type Department Care Team [...] on filedocumented in this encounter Care Teams Flight Instructor Relationship Specialty Start Date End Date Isadora De La Cruz MD [facility] [address] [place] [address] PCP - General 06/24/24 documented as of this encounter
--- OUTSIDE RECORDS SUMMARY | 2024-07-22 12:26 | XMS_ITS | Encounter Summary ---
Author Organization [place] Address [address] [place] [address] Care Team Providers Care Gas Well Drilling Manager Name Role Phone Isadora De La Cruz MD Primary Care Provider [phone]- [phone] Reason for Referral * Diagnostic Imaging Mammo (Routine) - Pending Review Specialty Diagnoses / Procedures Referred By Maldonado oglesby Referred To Contact Radiology. Diagnoses Visit for screening mammogram Procedures MA Screening Bilateral w/ Harmeet MA Screen Bilateral w/Harmeet Isadora De La Cruz MD [facility] NAMED [facility] [address] [place] [address] Referral ID Status Reason Start Date Expiration Date V isits Requested Visits Authorized [id number] Pending Review 06/28/2024 06/28/2025 1 1 Reason for Visit * Diagnostic Imaging Mammo (Routine) - Pending Review Specialty Diagnoses / Procedures Referred By Maldonado oglesby Referred To Contact Radiology / Radiology. Diagnoses mammo Procedures MA SCREENING DIGITAL BILATERAL System, Provider Not In Breast Center [address] [facility], [address] [place] [address] Referral ID Status Reason Start Date Expiration Date V isits Requested Visits Authorized [id number] Pending Review 06/29/2024 06/29/2025 1 1 Encounter Details Date Type Department Care Team (Late st Contact Info) Description 06/29/2024 10:05 AM CDT - 06/29/2024 11:59 PM CDT Hospital Encounter [facility] [address] [facility], [address] [place] [address] Isadora De La Cruz MD FOR[facility] NAMED [facility] [address] [place] [address] Visit for screening mammogram Discharge Disposition: Home [...] mammogram documented in this encounter Care Teams Gas Well Drilling Manager Relationship Specialty Start Date End Date Isadora De La Cruz MD [facility] N[facility] [address] [place] [address] PCP - General 06/24/24 documented as of this encounter
== END 2024-07-15 09:28 | disposition home or self-care (01) ==
LOC: NFLDREF 07-22 12:23
PROVIDERS: PCP Physician Assistant Medical; Referring Provider Physician Assistant Medical; Visit Provider Emergency Medicine
DX: B71.9 Cestode infection, unspecified (principal)
CPT/HCPCS: 87177; 87209

== ENCOUNTER 2025-08-05 08:34 | Outpatient (CLI) | payer BC, SELFPAY ==
[2025-08-07 22:34] LABS: HPV Source Cervix
[2025-08-12 12:26] LABS: Pap Test Digital Imaging Done
== END 2025-08-05 08:35 | disposition home or self-care (01) ==
PROVIDERS: PCP Nurse Practitioner Family; Visit Provider Nurse Practitioner Family
DX: L65.9 Nonscarring hair loss, unspecified (principal); Z11.51 Encounter for screening for human papillomavirus (HPV); Z12.4 Encounter for screening for malignant neoplasm of cervix; Z87.42 Personal history of other diseases of the female genital tract; Z13.6 Encounter for screening for cardiovascular disorders; Z13.9 Encounter for screening, unspecified
CPT/HCPCS: 80053; 80061; 84443; 87624; 87625; 88141; 88142; 88175